=== PATIENT | female | born 1980 | race American Indian/Alaskan Native ===

== ENCOUNTER 2019-08-10 07:17 | Inpatient (IN) | payer BC, MEDICAID ==
--- NOTE | 2019-08-10 09:01 | History and Physical Report ---
History of Present Illness Date of examination: 08/10/19 Date of admission: 08/10/19 Chief complaint: Leaking fluid History of present illness: 39yo G 3 P 2 0 0 2 @ 38 weeks 3 days here with c/o leaking fluid since 08/09/19 @ 21:30. She reports +FMs but denies UCs or VB. She is a [facility] [employer] patient who initiated care at 8 weeks gestation. 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 Her care was co-managed with [facility]. LABS: B+, Antibody Screen neg, Pap Smear normal, RI, VDRL NR, HBsAg neg, HIV neg, Varicella immune, MSAFP neg, Hgb A1c 5.3%, HCV neg, Diabetes Screen 142, 3hr GTT 77/120/105/48, GC/CT/Trich neg, GBS neg. 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 denies: alcohol abuse, prescription drug abuse, IV drug use - Obstetrical History Expected Date of Delivery: 08/21/19 Actual Gestation: 38 Week(s) 3 Day(s) : 3 Para: 2 Hx # Term Pregnancies: 2 Number of Pregnancies: 0 Spontaneous Abortions: 0 Induced : 0 Number of Living Children: 2 #1 Gender: Male year: 1,998 (08/16/1996) Birthweight: 3.033 kg (6 lbs 11 oz) Method of Delivery: Vaginal Gestational age at delivery: 40 Complications: none #2 Gender: Female year: 2,[birth year] (10/24/2005) Birthweight: 3.941 kg (8 lbs 11 oz) Method of Delivery: Vaginal Gestational age at delivery: 40 Complications: none Medications and Allergies Allergies Allergy/AdvReac Type Severity Reaction Status Date / Time No Known Allergies Allergy Verified 08/10/19 09:25 Review of Systems All systems: negative - Vital Signs Vital signs: Vital Signs Pulse BP 117 H 126/84 08/10/19 07:46 08/10/19 07:46 Temp Pulse Resp BP Pulse Ox 98.5 F 98 H 18 141/91 08/10/19 08:43 08/10/19 08:43 08/10/19 08:43 08/10/19 08:43 - Obstetrical FHR: auscultation normal, category 1 Uterine Contraction Monitor Mode: External Cervical Dilatation: 3 (per RN) Cervical Effacement Percentage: 60 (per RN) station: -3 (per RN) Uterine Contraction Pattern: Irregular Results All other labs normal. Assessment and Plan - Patient Problems (1) 38 weeks gestation of Current Visit: Yes Status: Acute (2) SROM (spontaneous rupture of membranes) Current Visit: Yes Status: Acute Plan to address problem: Admit to L&D with routine labor orders Start oxytocin for labor augmentation Anticipate vaginal delivery (3) Active labor at term Current Visit: Yes Status: Acute (4) IUGR (intrauterine growth restriction) affecting care of mother Current Visit: Yes Status: Acute Qualifiers: Trimester: third trimester (5) Advanced maternal age (AMA) in Current Visit: Yes Status: Acute (6) Morbid obesity with BMI of 40.0-44.9, adult Current Visit: Yes Status: Acute
[2019-08-10] MEDS ORDERED: TERBUTALINE 1 MG/1 ML INJ SUB-Q PRN (09:30)
[2019-08-10] MEDS ORDERED: LIDOCAINE (2%) 20 MG/1 ML VIAL 20 ML MDV INFILTRATI NR (09:30)
[2019-08-10] MEDS ORDERED: MINERAL OIL 30 ML ORAL LIQD PO PRN (09:30)
[2019-08-10] MEDS ORDERED: OXYTOCIN DRIP 30 UNITS/500 ML BAG IV SCH (09:30)
[2019-08-10] MEDS ORDERED: fentaNYL 100 MCG/2 ML INJ IV PRN (09:30)
[2019-08-10] MEDS ORDERED: BUTORPHANOL 2 MG/1 ML INJ IV PRN ×2 (09:30)
[2019-08-10] MEDS ORDERED: TERBUTALINE 1 MG/1 ML INJ IVP PRN (09:30)
[2019-08-10] MEDS ORDERED: ePHEDrine SULFATE 50 MG/1 ML INJ IV PRN (09:30)
[2019-08-10] MEDS ORDERED: OXYTOCIN 20 UNIT/1000ML DRIP 20 UNITS/1,000 ML BAG IV SCH (09:30)
[2019-08-10] MEDS: LACTATED RINGERS 1,000 ML IV SCH ×3 (09:58→21:26)
[2019-08-10 11:17] LABS: Basophils # (Auto) 0.1 K/mm3 (0.0-0.1); Basophils % (Auto) 0.7 % (0.0-1.8); Eosinophils # (Auto) 0.1 K/mm3 (0.0-0.4); Eosinophils % (Auto) 1.1 % (0.0-4.3); Hematocrit 38.6 % (30.3-42.9); Hemoglobin 12.7 gm/dl (10.1-14.3); Lymphocytes # (Auto) 1.8 K/mm3 (1.2-5.4); Lymphocytes % (Auto) 21.8 % (13.4-35.0); Mean Corpuscular HGB Conc 33 % (30-34); Mean Corpuscular Volume 76 fl (79-97); Monocytes # (Auto) 0.6 K/mm3 (0.0-0.8); Monocytes % (Auto) 6.8 % (0.0-7.3); Platelet Count 287 K/mm3 (140-440); Red Blood Count 5.06 M/mm3 (3.65-5.03); Red Cell Distribution Width 14.5 % (13.2-15.2)
[2019-08-10 11:44] LABS: Uric Acid 6.1 mg/dL (3.5-7.6)
--- NOTE | 2019-08-10 16:09 | Event Note ---
Date: 08/10/19 S: Pt in right tilt position. Reports pain but tolerable. O: FHR baseline 140, moderate variability, + accels, variable decels SVE 4.5/50/-3 A: IUP @ 38w3d SROM Cat II FHR P: IUPC/FSE inserted Amnioinfusion ordered Continue intrauterine resuscitation measures Restart Pitocin per protocol Anticipate vaginal delivery
[2019-08-10] MEDS ORDERED: SODIUM CHLORIDE 0.9% 1000 ML 1,000 ML VG SCH (16:15)
--- NOTE | 2019-08-10 17:38 | Event Note ---
Date: 08/10/19 Assumed care of patient at 17:25. Patient was admitted due to SROM. Per RN, patient has been receiving Pitocin today for augmentation of labor. She has an IUPC and FSE in place. She is currently receiving an amnioinfusion for variable FHR decelerations and has oxygen per face mask at 10 LPM. She is currently resting in left lateral position. Instructed RN to discontinue Pitocin and MD to be notified of recurrent variable FHR decelerations. RN states she has just called Dr. Perdomo and he is on his way to evaluate the patient. SVE /-4. No lesions seen on careful exam with bright light.
[2019-08-10] MEDS ORDERED: BICITRA ORAL LIQD 30ML PO ONE (19:41)
[2019-08-10] MEDS ORDERED: METOCLOPRAMIDE 10 MG/2 ML INJ ONE (19:50)
[2019-08-10] MEDS ORDERED: FAMOTIDINE 20 MG/2 ML INJ IV ONE ×2 (19:50→22:00)
[2019-08-10] MEDS ORDERED: ceFAZolin/STERILE WATER 2 GM/20 ML SYRINGE IV NR (20:00)
--- NOTE | 2019-08-10 20:24 | Anesthesia Consultation ---
Anesthesia Consult and Med Hx Date of service: 08/10/19 - Airway Anesthetic Teeth Evaluation: Good ROM Head & Neck: Adequate Mental/Hyoid Distance: Adequate Mallampati Class: Class II Intubation Access Assessment: Good - Pulmonary Exam CTA: Yes - Cardiac Exam Cardiac Exam: RRR - Pre-Operative Health Status ASA Pre-Surgery Classification: ASA2, Emergency Proposed Anesthetic Plan: Spinal - Pulmonary Hx Asthma: No - Cardiovascular System Hx Hypertension: No - Central Nervous System Hx Seizures: No Hx Psychiatric Problems: No - Endocrine Hx Renal Disease: No Hx End Stage Renal Disease: No Hx Hypothyroidism: No Hx Hyperthyroidism: No - Hematic Hx Anemia: Yes Hx Sickle Cell Disease: No - Other Systems Hx Alcohol Use: No Hx Obesity: Yes
--- NOTE | 2019-08-10 20:25 | Anesthesia Day of Surgery ---
Anesthesia Day of Surgery - Day of Surgery Patient Examined: Yes Patient H&P Reviewed: Yes Patient is NPO: Yes
[2019-08-10] MEDS ORDERED: DEXMEDETOMIDINE 200 MCG/2 ML VIAL IV ONE (22:54)
--- NOTE | 2019-08-10 22:55 | Event Note ---
Date: 08/10/19 The patient was stable. However her fetus was showing signs of not tolerating the process of labor. With the patient's cervix 70% effaced and at best 4 cm dilated, the overall clinical scenario was discussed with the patient. With her membranes ruptured and intolerance to Pitocin augmentation, the risk of prolonging the process of labor will be compounded by the risk of chorioamnionitis and the decision was made with the patient to proceed to a delivery.
[2019-08-10] MEDS ORDERED: diphenhydrAMINE 50 MG/ML VIAL ONE (23:25)
[2019-08-10] MEDS ORDERED: dexAMETHasone 20 MG/5 ML VIAL ONE (23:25)
[2019-08-10] MEDS ORDERED: KETOROLAC 30 MG/1 ML INJ ONE (23:25)
[2019-08-10] MEDS ORDERED: BUPIVACAINE /DEX-WATER 0.75% (2 ML) AMPULE INFILTRATI ONE (23:25)
[2019-08-10] MEDS ORDERED: HYDROmorphone 1 MG/1 ML INJ ONE (23:25)
[2019-08-10] MEDS ORDERED: ONDANSETRON 4 MG/2 ML INJ ONE (23:25)
[2019-08-10] MEDS ORDERED: MIDAZOLAM 2 MG/2 ML INJ ONE (23:41)
[2019-08-10] MEDS ORDERED: MORPHINE 2 MG/1 ML INJ ONE (23:42)
--- NOTE | 2019-08-11 00:05 | Operative Report ---
Operative Report Operative Report: Date of surgery: August 10, 2019 Preoperative diagnose: intolerance of labor, term Postoperative diagnoses: The same. Meconium staining, peritoneal adhesions Operation: Lower segment transverse delivery, lysis of adhesions Surgeon:Sanford Perdomo MD Circle Edger: Jeremias Pettit []FESTUS Anesthesia: Spinal block Estimated blood loss: 500 mL Complications: None Findings: There was a live baby girl in vertex, in thick olive green meconium. Apgars 8/9. weight 2312 g. The uterus had multiple fibroids. The right adnexa was involved with adhesions involving the lower reaches of the greater omentum. The right adnexa was grossly normal. Procedure in detail: The patient was taken to the operating room and given a spinal block. Patient was placed in the straight supine position and a Baez catheter was inserted. The patient was prepped in the abdomen. The drapes were placed. A timeout was done. With the go ahead from the private duty rn, a Pfannenstiel incision was made. This incision was carried across the subcutaneous layer to the fascia which was also divided transversely. The recti abdominis muscle flaps were stripped from the fascia using a combination of blunt and sharp dissections. The muscles were in the midline to gain access to the anterior parietal peritoneum which was divided after excluding any underlying viscera. The access to the peritoneal cavity was then widened by manual stretching. The bladder blade was applied. The utero vesicle peritoneal flap was divided transversely allowing the bladder to be displaced caudally. The uterine incision was placed in the lower segment transversely. The uterine incision was carried to the decidual layer. The uterine incision was extended on both sides using the bandage scissors. The amniotic sac was ruptured with clear fluid. The head was lifted out of the false maternal pelvis and delivered through the incision using fundal pressure. The airways were bulb suctioned beginning with the mouth. Continuing fundal pressure combined with traction on the mandibular processes of the jaw delivered the rest of the baby. The umbilical cord was double clamped and divided. The baby was carefully transferred to the pediatric team. The placenta was manually removed from the uterine cavity. The uterine cavity was explored and was empty of any placental remnants. The uterine incision was repaired in 2 layers with #1 Vicryl. The surgical line on the uterus was hemos tatic. The omental adhesions described under the findings were divided and tied off with #1 Vicryl. Hemostasis was very good. Blood and clots were cleared from the peritoneal cavity. The anterior parietal peritoneum was repaired with #1 Vicryl. The fascia was repaired with #1 Vicryl. The subcutaneous layer was made hemostatic using the Bovie before the skin was closed subcuticularly with 4-0 Vicryl. There were no complications. The estimated blood loss was 500 mL. All sponges and instrument counts were correct. Patient was safely transferred to the recovery room.
[2019-08-11] MEDS ORDERED: NALOXONE 0.4 MG/1 ML INJ IV PRN ×2 (00:06→00:35)
[2019-08-11] MEDS ORDERED: WITCH HAZEL/ GLYCERIN PAD TP PRN (00:06)
[2019-08-11] MEDS ORDERED: LANOLIN/ZINC/DIMETHICONE (LANSINOH) 7 GM TP PRN (00:06)
[2019-08-11] MEDS ORDERED: ONDANSETRON 4 MG/2 ML INJ IV PRN ×2 (00:06→00:35)
[2019-08-11] MEDS ORDERED: ACETAMINOPHEN 325 MG TAB PO PRN (00:06)
[2019-08-11] MEDS ORDERED: MORPHINE 4 MG/1 ML INJ IV PRN (00:06)
[2019-08-11] MEDS ORDERED: PROMETHAZINE 25 MG TAB PO PRN (00:35)
[2019-08-11] MEDS ORDERED: PROMETHAZINE 25 MG RECT SUPP PR PRN (00:35)
[2019-08-11] MEDS ORDERED: HYDROmorphone 1 MG/1 ML INJ IV PRN (00:35)
--- NOTE | 2019-08-11 00:37 | Progress Note ---
Spinal Anesthesia Block - Spinal Anesthesia Block Start Time: 23:05 Stop Time: 23:07 Performed by:: LEANNA SCHAEFFER Procedure: Spinal anesthesia block is being performed for primary for nonreassuring heart tone. H&P, labs have been reviewed. Patient's questions and concerns have been answered. Informed consent has been performed. Timeout has was performed. Patient in sitting position on side of bed. Sterile prep and drape was performed. 3 mL 1% lidocaine skin wheal at L 3-L 4. Needle introducer advanced. 25-gauge spinal needle advanced, clear CSF negative blood. Spinal dose was given. All needles removed. Patient tolerated procedure well.
--- NOTE | 2019-08-11 00:40 | Post Anesthesia Evaluation ---
- Post Anesthesia Evaluation Patient Participated: Yes Airway Patent: Yes Stable Respiratory Function: Yes Nausea/Vomiting: No Temp > 96.8F: Yes Pain Manageable: Yes Adequeate Hydration: Yes Anesthesia Complications: No Block Receding Appropriately: Yes Patient on Ventilator: No
[2019-08-11] MEDS ORDERED: OXYTOCIN 20 UNIT/1000ML DRIP 20 UNITS/1,000 ML BAG IV SCH (01:00)
[2019-08-11] MEDS: KETOROLAC 30 MG/1 ML INJ IV PRN ×2 (02:49→08:48)
[2019-08-11] MEDS: D5W/LACTATED RINGERS 1,000 ML IV SCH ×2 (02:54→11:30)
[2019-08-11] MEDS ORDERED: ceFAZolin/NS 1 GM/50 ML 1 GM/50 ML BAG IV SCH (04:00)
[2019-08-11] MEDS: ceFAZolin/NS 1 GM/50 ML 1 GM/50 ML BAG IV SCH ×2 (08:44→16:44)
[2019-08-11] MEDS: PRENATAL VIT27-FE FUMARATE-FOLIC ACID VIT TAB PO SCH (09:32)
[2019-08-11] MEDS: FERROUS SULFATE 325 MG TAB PO SCH (09:32)
--- NOTE | 2019-08-11 10:49 | Progress Note ---
Assessment and Plan A: /postop day 1 S/P primary LTCS. P: Encouraged ambulation. Advance diet as tolerated after patient is passing gas. Subjective - Subjective Date of service: 08/11/19 Principal diagnosis: /postop day 1 S/P primary LTCS Interval history: /postop day 1 S/P primary LTCS. Doing well. Ambulating well. Tolerating liquid diet. Voiding without difficulty. Patient reports: appetite normal, voiding normally, pain well controlled, ambulating normally, no dizzy ambulation, no flatus, no nauseated : doing well Objective - Vital Signs Latest vital signs: Vital Signs Temp Pulse Resp BP BP Pulse Ox 08/11/19 09:15 98.7 F 77 20 134/77 08/11/19 05:41 97.8 F 76 18 138/89 97 08/11/19 05:00 20 08/11/19 02:49 20 08/11/19 02:05 98.6 F 70 20 107/60 98 08/11/19 01:15 98.1 F 85 17 110/68 98 08/11/19 01:00 76 18 114/75 99 08/11/19 00:45 69 22 113/71 97 08/11/19 00:30 72 22 114/71 97 08/11/19 00:25 73 23 119/77 98 08/11/19 00:20 77 22 123/77 98 08/11/19 00:15 77 20 111/76 98 08/11/19 00:13 98.1 F 75 20 123/76 98 08/10/19 20:25 100 H 100 08/10/19 20:20 81 100 08/10/19 20:15 88 99 08/10/19 20:10 99 H 100 08/10/19 20:04 69 100 08/10/19 19:59 79 100 08/10/19 19:54 74 100 08/10/19 19:52 83 129/88 08/10/19 19:49 70 100 08/10/19 19:44 72 100 08/10/19 19:39 80 100 08/10/19 19:34 93 H 100 08/10/19 19:29 96 H 100 08/10/19 19:24 77 141/99 100 08/10/19 19:19 80 100 08/10/19 19:14 81 99 04/24/20 19:09 78 99 20 19:04 90 100 20 18:59 85 98 20 18:54 75 99 20 18:52 73 128/81 20 18:49 77 99 20 18:44 79 99 20 18:39 78 100 20 18:34 78 100 20 18:29 73 100 20 18:24 74 100 20 18:22 77 191/100 20 18:19 71 100 20 18:14 84 100 20 18:09 71 100 08/10/19 18:04 71 100 20 17:59 74 100 08/10/19 17:54 76 100 08/10/19 17:52 83 139/84 08/10/19 17:49 74 100 08/10/19 17:44 67 100 08/10/19 17:39 74 100 08/10/19 17:34 74 100 20 17:29 70 100 08/10/19 17:24 89 100 20 17:22 78 130/86 08/10/19 17:19 65 100 08/10/19 17:14 77 100 08/10/19 17:09 117 H 100 08/10/19 17:04 71 100 08/10/19 16:59 92 H 100 08/10/19 16:54 86 100 08/10/19 16:52 79 126/88 08/10/19 16:49 87 100 08/10/19 16:44 81 100 20 16:39 88 100 20 16:34 81 100 20 16:29 82 100 20 16:24 89 100 20 16:23 86 131/84 20 16:19 88 100 20 16:14 80 100 20 16:09 83 100 20 16:04 73 100 20 15:59 73 100 20 15:54 80 100 20 15:52 82 125/82 20 15:49 83 100 04/24/20 15:45 90 137/92 08/10/19 15:44 86 99 08/10/19 15:16 80 100 08/10/19 15:11 72 100 08/10/19 15:06 79 100 08/10/19 15:01 74 100 08/10/19 14:56 98 H 100 08/10/19 14:54 88 113/82 92 08/10/19 14:51 69 98 08/10/19 14:46 76 99 08/10/19 14:41 71 99 08/10/19 14:36 94 H 100 08/10/19 14:31 83 99 08/10/19 14:26 83 100 08/10/19 14:22 72 138/91 08/10/19 14:21 68 100 08/10/19 14:16 73 100 08/10/19 14:11 69 100 08/10/19 14:06 76 100 08/10/19 14:01 79 99 08/10/19 13:56 84 100 08/10/19 13:52 77 140/88 08/10/19 13:51 88 100 08/10/19 13:30 75 145/83 08/10/19 13:00 67 122/70 08/10/19 12:30 71 132/76 08/10/19 12:01 76 123/82 08/10/19 11:31 86 148/74 08/10/19 11:00 93 H 133/87 08/10/19 10:51 81 147/91 Intake and Output 08/10/19 08/11/19 08/11/19 23:59 07:59 15:59 Intake Total 1640.000 240 120 Output Total 2400 250 400 Balance -760.000 -10 -280 Intake: IV 1640.000 Lactated Ringers 1,000 ml 1433.333 @ 125 mls/hr IV DIRECT LUIZA Rx#:[id number] PITOCin/NS 30 UNIT/500ML 6.667 30 units In 500 ml @ As Directed IV TITR LUIZA Rx#: [id number] Oral 240 120 Output: Urine 2400 250 400 Indwelling Catheter 1400 250 400 Uretheral (Baez) 1000 Other: Total, Intake Amount 240 120 Total, Output Amount 400 250 400 Estimated Blood Loss 500 - Exam Cardiovascular: Present: Regular rate, Normal S1, Normal S2 Lungs: Present: Clear to auscultation Abdomen: Present: normal appearance, soft, normal bowel sounds. Absent: di stention, tenderness, guarding, rigidity Uterus: Present: normal, firm, fundal height below umbilicus. Absent: bogginess, tenderness Extremities: Present: normal. Absent: tenderness Incision: Present: normal, dry, dressed - Labs Labs: Abnormal lab results 08/10/19 08/10/19 Range/Units 09:31 09:31 RBC 5.06 H (3.65-5.03) M/mm3 MCV 76 L (79-97) fl MCH 25 L (28-32) pg Lactate Dehydrogenase 182 H (91-180) units/L
[2019-08-11 12:07] LABS: Hematocrit 32.3 % (30.3-42.9); Hemoglobin 10.6 gm/dl (10.1-14.3)
[2019-08-11] MEDS: HYDROcodone/ACETAMINOPHEN 5-325 MG TAB PO PRN ×2 (13:33→19:50)
[2019-08-11] MEDS: IBUPROFEN 800 MG TAB PO PRN ×2 (17:30→23:11)
[2019-08-12] MEDS ORDERED: MAGNESIUM HYDROXIDE (MOM) ORAL LIQD UDC PO PRN (00:59)
[2019-08-12] MEDS: HYDROcodone/ACETAMINOPHEN 5-325 MG TAB PO PRN ×3 (01:03→20:39)
[2019-08-12] MEDS: IBUPROFEN 800 MG TAB PO PRN ×2 (05:39→13:25)
[2019-08-12] MEDS: PRENATAL VIT27-FE FUMARATE-FOLIC ACID VIT TAB PO SCH (10:29)
[2019-08-12] MEDS: FERROUS SULFATE 325 MG TAB PO SCH (10:29)
[2019-08-12] MEDS ORDERED: SIMETHICONE 80 MG CHEW TAB PO PRN (11:32)
--- NOTE | 2019-08-12 13:10 | Progress Note ---
Assessment and Plan A: /postop day 2 S/P primary LTCS. Anemia. P: Supplement with iron. Encouraged ambulation. Subjective - Subjective Date of service: 08/12/19 Principal diagnosis: /postop day 2 S/P primary LTCS Interval history: /postop day 2 S/P primary LTCS. Doing well. Ambulating well. Tolerating regular diet. Voiding without difficulty. Patient reports: appetite normal, voiding normally, pain well controlled, flatus, ambulating normally, no dizzy ambulation, no nauseated [place]: doing well Objective - Vital Signs Latest vital signs: Vital Signs Temp Pulse Resp BP BP Pulse Ox 08/12/19 07:49 98.3 F 83 14 130/80 96 08/12/19 05:39 18 08/12/19 03:26 125/54 08/12/19 01:03 18 08/12/19 00:27 98.2 F 20 154/100 08/11/19 23:11 18 08/11/19 20:31 98.0 F 80 18 148/93 97 08/11/19 19:50 18 08/11/19 16:50 98.2 F 78 20 130/72 08/11/19 13:33 18 Intake and Output 08/11/19 08/12/19 08/12/19 23:59 07:59 15:59 Intake Total 524 515 4657 Output Total 400 Balance 0 360 2240 Intake: Oral 400 2240 Intake, Free Water 360 Output: Urine 400 Void 400 Other: Total, Intake Amount 400 1120 Total, Output Amount 400 Voiding Method Toilet # Voids 1 Void 1 1 1 - Exam Cardiovascular: Present: Regular rate, Normal S1, Normal S2 Lungs: Present: Clear to auscultation Abdomen: Present: normal appearance, soft. Absent: distention, tenderness, guarding, rigidity Uterus: Present: normal, firm, fundal height below umbilicus. Absent: bogginess, tenderness Extremities: Present: normal. Absent: tenderness Incision: Present: normal, dry, intact, dressed
[2019-08-13] MEDS: IBUPROFEN 800 MG TAB PO PRN ×2 (02:17→15:15)
--- NOTE | 2019-08-13 07:20 | Event Note ---
Date: 08/13/19 Pt. declines discharge today. Wants to stay another day. Requests we change her pain medications. Switched pt. to Percocet (see orders).
[2019-08-13] MEDS: oxyCODONE /ACETAMINOPHEN 5-325MG TAB PO PRN ×2 (09:42→20:58)
--- NOTE | 2019-08-13 10:27 | Progress Note ---
Assessment and Plan - Patient Problems (1) S/P primary low transverse Current Visit: Yes Status: Acute Plan to address problem: POD 3 - uncontrolled pain Continue routine postop orders Ambulation, abdominal binder encouraged as tolerated Anticipate discharge in 24 hours (2) Uncontrolled pain Current Visit: Yes Status: Acute Plan to address problem: Pain medication switched to Percocet 2 tabs PO q6hr as needed this AM by NOLAN Castañeda Continue Ibuprofen as ordered (3) Advanced maternal age (AMA) in Current Visit: Yes Status: Acute (4) Morbid obesity with BMI of 40.0-44.9, adult Current Visit: Yes Status: Acute Subjective - Subjective Date of service: 08/13/19 Principal diagnosis: POD #3; s/p Primary LTCS; Uncontrolled Pain Interval history: see EYE TECHNICIAN - 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, Event Notes, Operative Report and PP/CLINICAL MEDICAL TRANSCRIPTIONIST Progress Notes Patient reports: appetite normal, voiding normally, flatus, pain poorly controlled, ambulating normally, other (denies headache, visual disturbances, RUQ pain, altered mental status, leg pain or SOB), no dizzy ambulation, no bowel movement : doing well, bottle feeding Objective - Vital Signs Latest vital signs: Vital Signs Temp Pulse Resp BP Pulse Ox 08/13/19 09:42 20 08/13/19 07:44 98.1 F 79 20 110/57 97 08/13/19 00:26 98.6 F 100 H 20 133/91 96 08/12/19 16:41 98.4 F 94 H 16 124/74 96 Intake and Output 08/12/19 08/13/19 08/13/19 23:59 07:59 15:59 Intake Total 400 240 Balance 400 240 Intake: Oral 400 240 Other: Total, Intake Amount 200 240 Voiding Method Toilet # Voids 1 Void 1 1 - Exam Cardiovascular: Present: Regular rate Lungs: Present: Clear to auscultation Abdomen: Present: normal appearance, soft Vulva: both: normal Uterus: Present: normal, firm, fundal height below umbilicus Extremities: Present: normal Incision: Present: normal, dry, intact, other (steri strips in place) Comments: scant lochia
[2019-08-13] MEDS: FERROUS SULFATE 325 MG TAB PO SCH (15:43)
[2019-08-13] MEDS: PRENATAL VIT27-FE FUMARATE-FOLIC ACID VIT TAB PO SCH (15:44)
[2019-08-14] MEDS: IBUPROFEN 800 MG TAB PO PRN (03:43)
[2019-08-14] MEDS ORDERED: oxyCODONE /ACETAMINOPHEN 5-325MG TAB PO PRN (10:49)
[2019-08-14] MEDS: PRENATAL VIT27-FE FUMARATE-FOLIC ACID VIT TAB PO SCH (11:03)
--- NOTE | 2019-08-14 11:38 | Discharge Summary ---
Providers - Providers Date of Admission: 08/10/19 07:18 Date of discharge: 08/14/19 (1200) Attending physician: CHERYLE SMITH MD Primary care physician: CHERYLE SMITH MD Hospitalization Reason for admission: active labor, IUP at term Delivery: Procedure: primary low transverse (secondary to intolerance to labor) Episiotomy: none Laceration: none Incision: dry, intact Other procedures: none complications: other (uncontrolled pain) Discharge diagnosis: IUP at term delivered, other (anemia) [place] baby: female Hospital course: See admission H & P; OB operative note; and PP progress notes Condition at discharge: Stable Disposition: DC-01 TO HOME OR SELFCARE - Discharge Diagnoses (1) S/P primary low transverse Status: Acute (2) Advanced maternal age (AMA) in Status: Acute Plan - Discharge Medications Prescriptions: Ferrous Sulfate [Feosol 325 MG tab] 325 mg PO QDAY 30 Days #30 tablet HYDROcodone/APAP 5-325 [[place] 5/325] 1 - 2 each PO Q4HR PRN #30 tablet PRN Reason: Pain oxyCODONE /ACETAMINOPHEN [Percocet 5/325] 1 - 2 tab PO Q6HR PRN #30 tablet PRN Reason: Pain - Provider Discharge Summary Activity: routine, no sex for 6 weeks, no heavy lifting 4 weeks, no strenuous exercise Diet: other (Iron rich dietr) Instructions: routine Additional instructions: [] Smoking cessation referral if applicable(refer to patient education folder for contact #) [] Refer to [facility] Booklet Call your doctor immediately for: * Fever > 100.5 * Heavy vaginal bleeding ( >1 pad per hour) * Severe persistent headache * Shortness of breath * Reddened, hot, painful area to leg or breast * Drainage or odor from incision. * Keep incision clean and dry at all times and follow doctor's instructions regarding bathing/showering - Follow up plan Follow up: CHERYLE SMITH MD [Primary Care Provider] - 7 Days
[2019-08-14 13:13] VITALS: BP 117/87
== END 2019-08-14 15:00 | disposition home or self-care (01) | DRG 788 ==
LOC: TRG 07:17 → LD 07:18 → APU 07:18 → TRG 09:33 → OB 08-11 01:51
PROVIDERS: ADMIT Obstetrics & Gynecology; ATTEND Obstetrics & Gynecology
PROC: 10D00Z1 Extraction of Products of Conception, Low, Open Approach (ICD-10-PCS; principal; 2019-08-11)
DX: O36.5930 Maternal care for other known or suspected poor fetal growth, third trimester, not applicable or unspecified (principal); Z3A.38 38 weeks gestation of pregnancy; Z37.0 Single live birth; O99.214 Obesity complicating childbirth; E66.01 Morbid (severe) obesity due to excess calories; O76 Abnormality in fetal heart rate and rhythm complicating labor and delivery; O77.0 Labor and delivery complicated by meconium in amniotic fluid; O99.62 Diseases of the digestive system complicating childbirth; K66.0 Peritoneal adhesions (postprocedural) (postinfection); O90.81 Anemia of the puerperium; D64.9 Anemia, unspecified
CPT/HCPCS: 36415; 83615; 84450; 84460; 84550; 85014; 85018; 85025; 86592; 86850; 86900; 86901; 88307; G0378; J0595; J0690; J1100; J1170; J1200; J1885; J2250; J2270; J2405; J2590; J2765; J3490; J7030; J7120; J7121